=== PATIENT | male | born 1980 | race Caucasian/White ===

== ENCOUNTER 2023-11-09 10:07 | Emergency (ER) | payer OTHER ==
[2023-11-09 10:30] VITALS: TEMP 98.3; BMI 27.9
[2023-11-09] MEDS ORDERED: BACITRACIN 0.9 GM PACKET ONE (10:55)
[2023-11-09] MEDS: BACITRACIN ZINC 15 GM TUBE TOPICAL OINTMENT TP ONE (11:01)
[2023-11-09] MEDS ORDERED: DIPHTH,PERTUSS(ACELL),TET 0.5 ML DISP.SYRIN IM ONE (12:06)
[2023-11-09] MEDS: DIPHTH,PERTUSS(ACELL),TET 0.5 ML DISP.SYRIN IM ONE (12:11)
[2023-11-09 13:42] VITALS: BP 139/82; PULSE 85; RESP 16
== END 2023-11-09 13:43 | disposition home or self-care (01) ==
LOC: JER 10:07
PROC: 3E0234Z Introduction of Serum, Toxoid and Vaccine into Muscle, Percutaneous Approach (ICD-10-PCS; principal; 2023-11-09)
DX: R51.9 Headache, unspecified (principal); Y04.8XXA Assault by other bodily force, initial encounter
CPT/HCPCS: 70450-TC; 70486-TC; 90471; 90715; 99284-25